=== PATIENT | female | born 1950 ===

== ENCOUNTER 2021-10-24 09:15 | Inpatient (IN) | payer OTHER ==
[~2021-10-24] VITALS: Ht 157.5 cm; Wt 67.1 kg
[2021-10-24] MEDS ORDERED: ATACAND HCT 321 EACH PO (12:45)
[2021-10-24] MEDS ORDERED: ATORVASTATIN CA20 MG PO (12:45)
== END 2021-10-26 10:52 | disposition home or self-care (01) | DRG 735 ==
LOC: OB/GYN 10-25 05:40 → O/R 10-25 05:40 → SURH 10-25 09:15 → OB/GYN 10-25 15:41 → SURG-SUITE 10-25 19:49
PROVIDERS: ADMIT Obstetrics & Gynecology Gynecologic Oncology; ATTEND Obstetrics & Gynecology Gynecologic Oncology
PROC: 0UT94ZZ Resection of Uterus, Percutaneous Endoscopic Approach (ICD-10-PCS; 2021-10-25)
PROC: 0UT74ZZ Resection of Bilateral Fallopian Tubes, Percutaneous Endoscopic Approach (ICD-10-PCS; 2021-10-25)
PROC: 0UT24ZZ Resection of Bilateral Ovaries, Percutaneous Endoscopic Approach (ICD-10-PCS; 2021-10-25)
PROC: 07TC4ZZ Resection of Pelvis Lymphatic, Percutaneous Endoscopic Approach (ICD-10-PCS; principal; 2021-10-25 12:45)
DX: D25.1 Intramural leiomyoma of uterus (principal); N80.0 Endometriosis of uterus; Z20.822 Contact with and (suspected) exposure to COVID-19; N83.291 Other ovarian cyst, right side; N83.292 Other ovarian cyst, left side